=== PATIENT | female | born 2000 | race Caucasian/White ===

== ENCOUNTER 2023-06-30 07:37 | Outpatient (CLI) | payer BC, OTHER ==
[~2023-06-30] VITALS: Ht 162.6 cm; Wt 48.6 kg
[~2023-06-30 07:37] MED LIST: ZOFRAN ODT4 MG PO
[2023-06-30] MEDS ORDERED: LAMICTAL XR300 MG PO (08:06)
[2023-06-30] MEDS ORDERED: LITHIUM 60600 MG/CAP PO (08:07)
[2023-06-30 08:08] VITALS: BP 96/60; PULSE 78; TEMP 97.9
[2023-06-30 11:30] VITALS: BP 94/64; PULSE 65
[2023-06-30 11:45] VITALS: BP 98/60; PULSE 70
[2023-06-30 12:00] VITALS: BP 100/62; PULSE 68
[2023-06-30 12:30] VITALS: BP 102/60; PULSE 70
--- NOTE | 2023-06-30 12:54 | NUR ---
pt discharged at approx 1245. she was assisted to the main lobby via wheelchair and was accompanied by a friend. pt iv was discontinued and vital signs remained within normal limits during recovery. pt was free from concerns and complaints at time of discharge and verbalized understanding of discharge instructions.
== END 2023-06-30 12:45 | disposition home or self-care (01) ==
LOC: COL.CAR 07:37
DX: R55 Syncope and collapse (principal); R42 Dizziness and giddiness